=== PATIENT | female | born 2005 | race Caucasian/White ===

== ENCOUNTER 2024-03-14 18:26 | Emergency (ER) | payer OTHER, SELFPAY ==
[2024-03-14 18:29] VITALS: BP 125/79; PULSE 70; RESP 16; TEMP 36.7; O2SAT 100; BMI 23.5
--- NOTE | 2024-03-14 18:52 | ED_ITS ---
HPI - Wound/Laceration General Chief Complaint: Laceration/Wound Stated Complaint: R leg injury Time Seen by Provider: 03/14/24 18:32 History of Present Illness HPI narrative: This 18-year-old female comes in with her father because of an injury to her right lower extremity. She was playing softball and sliding into the home plate. She was blocked by the catcher and has an injury to her right lower extremity. She has a laceration below the knee overlying the tibia with an abrasion extending down toward her ankle. She did not have loss of consciousness or hit her head. She is able to get up and ambulate. She did go to urgent care and received a tetanus vaccination and a shot of Toradol but was sent here for further evaluation. Since then she is feeling better and has tenderness in the area of the injury but otherwise seems to be doing okay. Related Data Home Medications Medication Instructions Recorded Confirmed glycopyrrolate 1 mg tablet 1 mg PO DAILY 03/14/24 03/14/24 norethindrone acetate 1 mg-ethinyl 1 tab PO DAILY 03/14/24 03/14/24 estradiol 20 mcg tablet (Junel) Previous Rx's Medication Instructions Recorded ketorolac 10 mg tablet 10 mg PO Q8H 5 days #15 tabs 03/14/24 Allergies Allergy/AdvReac Type Severity Reaction Status Date / Time No Known Drug Allergies Allergy Verified 03/14/24 17:40 Review of Systems Status of ROS: Reports: 10 or more systems reviewed and unremarkable except as noted in History and below Narrative: Constitutional: No fevers, no weight gain or loss. Eyes: No discharge. No vision changes. HENT: No congestion, no sore throat, no ear pain. Cardiovascular: No chest pain, no palpitations. Respiratory: No shortness of breath, no wheezes, no cough. Gastrointestinal: No abdominal pain, no vomiting, no diarrhea. Genitourinary: No dysuria, no hematuria. Musculoskeletal: Normal range of motion. Skin: No rashes, no pruritis. Neurological: No dizziness, weakness, sensory change, speech change. Endo/Heme/Allergies: No bruising or bleeding. No polydipsia. Pysch: no suicidality, no anxiety, no insomnia. All other systems reviewed and are negative. Exam Narrative: Exam Narrative: Constitutional: Well-developed, well-nourished, no acute distress. HEENT: Normocephalic, atraumatic. Neck: Normal range of motion. Nontender. Supple. Heart: Regular. No murmurs. Normal rate. Intact distal pulses. Lungs: Clear to auscultation. No chest discomfort. No wheezes, rhonchi, or rales. Abdomen: Normal bowel sounds. Nontender. No rebound tenderness. Genitalia: Deferred. Back: No midline tenderness. Normal range of motion. Extremities: Normal range of motion. Laceration to the right lower extremity about 1.5 cm in length. There is superficial abrasion extending toward her ankle from this area. This is not full thickness skin injury. The right knee has no sign of bruising, effusion, or injury. She does not describe any instability or catching or locking. Her ligament exam is completely normal on both legs. Range of motion is intact. Skin: Intact. No rash. Warm. No erythema or pallor. Neurologic: No altered sensation. No weakness. Alert and oriented. Psychiatric: No suicidality. No anxiety or depression. No insomnia. Nursing notes and vitals signs are reviewed. Const: Vital Signs, click to edit/add: Vital Signs - 24 hr 03/14/24 18:29 Temperature 98.1 F Pulse Rate [Pulse Oximeter] 70 Respiratory Rate 16 Blood Pressure [Ri ght Upper Arm] 125/79 Pulse Oximetry 100 Oxygen Delivery Me thod Room Air Course Vital Signs Vital signs: Initial Vital Signs Temperature 98.1 F 03/14/24 18:29 Temperature Source Temporal Artery Scan 03/14/24 18:29 Pulse Rate 70 03/14/24 18:29 Respiratory Rate 16 03/14/24 18:29 Blood Pressure 125/79 03/14/24 18:29 Blood Pressure Mean 94 03/14/24 18:29 Blood Pressure Position Supine 03/14/24 18:29 Pulse Oximetry 100 03/14/24 18:29 Oxygen Delivery Method Room Air 03/14/24 18:29 Vital Signs Temperature 98.1 F 03/14/24 18:29 Pulse Rate 70 03/14/24 18:29 Respiratory Rate 16 03/14/24 18:29 Blood Pressure 125/79 03/14/24 18:29 Pulse Oximetry 100 03/14/24 18:29 Oxygen Delivery Method Room Air 03/14/24 18:29 Temperature 98.1 F 03/14/24 18:29 Pulse Rate 70 03/14/24 18:29 Respiratory Rate 16 03/14/24 18:29 Blood Pressure 125/79 03/14/24 18:29 Pulse Oximetry 100 03/14/24 18:29 Oxygen Delivery Method Room Air 03/14/24 18:29 MDM - Wound/Laceration MDM Narrative Medical decision making narrative: This patient has an injury to her right lower extremity as described above. She is not showing any sign of internal derangement of her knee joint nor is there any symptoms suspicious of compartment syndrome. She does have a laceration that would benefit from repair. After anesthesia with 1% lidocaine with epinephrine the wound was cleansed and then repaired with 4.0 Ethilon suture. Three sutures were placed in interrupted fashion. Instructions regarding wound care were given. The patient is okay to be discharged home. She is instructed to return to clinic or urgent care in 7-10 days for suture removal. She did receive a prescription for Toradol. Discharge Plan Discharge Clinical Impression: Laceration Patient Disposition: Home w/ Parent or Adult Condition: Improved Additional Instructions: Use medicine as needed and directed. Increase activity as tolerated. Follow up with clinic urgent care in 7-10 days for suture removal. Prescriptions: New ketorolac 10 mg tablet 10 mg PO Q8H 5 Days Qty: 15 0RF No Action norethindrone ac-eth estradiol [12/10 (21)] 1-20 mg-mcg tablet 1 tab PO DAILY glycopyrrolate 1 mg tablet 1 mg PO DAILY Follow Up/Referrals: Provider,Not a Local [Primary Care Provider] - Stand Alone Forms: Care2Manage Info Instructions
== END 2024-03-14 19:13 | disposition home or self-care (01) ==
PROVIDERS: Emergency Provider Emergency Medicine Emergency Medical Services
DX: S81.811A Laceration without foreign body, right lower leg, initial encounter (principal); Y93.64 Activity, baseball
CPT/HCPCS: 12001; 99283; 99284